=== PATIENT | male | born 1980 | race African-American/Black ===

== ENCOUNTER 2019-10-23 22:53 | Inpatient (IN) | payer MEDICAID ==
[~2019-10-23] VITALS: Ht 172.7 cm; Wt 103.9 kg
[2019-10-23] MEDS ORDERED: SODIUM CHLORIDE 0.9% 1,000 ML IV ONE (23:05)
[2019-10-23] MEDS ORDERED: DILTIAZEM HCL 5MG/ML 5ML VIAL IV ONE (23:15)
[2019-10-23 23:30] LABS: BASOPHILS % 0.4 % (0.0-2.0); EOSINOPHILS % 0.4 % (0.0-5.0); HEMATOCRIT. 44.7 % (42.0-52.0); HEMOGLOBIN. 14.5 g/dL (14.0-18.0); LYMPHOCYTES % 26.5 % (20.0-50.0); MEAN CORPUSCULAR VOLUME 77.2 fL (80.0-94.0); MONOCYTES % 7.6 % (2.0-8.0); NEUTROPHILS % 65.1 % (40.0-76.0); PLATELET 288 x1000/uL (130-400); RED BLOOD CELL COUNT 5.79 mill/uL (4.7-6.1); RED CELL DISTRIBUTION WIDTH 14.1 % (11.6-14.6)
[2019-10-23 23:35] LABS: CHLORIDE 107 mEq/L (98-107)
[2019-10-23 23:38] LABS: ETHANOL BLOOD < 10 mg/dL
[2019-10-24] MEDS ORDERED: DILTIAZEM HCL 125 MG in DEXT 5% WATER 100 ML IV SCH (01:00)
[2019-10-24 01:39] LABS: CLARITY URINE CLEAR (CLEAR); COLOR URINE YELLOW (YELLOW); KETONES URINE NEGATIVE (NEGATIVE); LEUKOCYTE ESTERASE URINE TRACE (NEGATIVE); NITRITE URINE NEGATIVE (NEGATIVE); OCCULT BLOOD URINE NEGATIVE (NEGATIVE); PROTEIN URINE NEGATIVE (NEGATIVE); SPECIFIC GRAVITY URINE 1.014 (1.005-1.030); UROBILINOGEN URINE 0.2 E.U./dL (0.2-1.0)
[2019-10-24 01:49] LABS: *AMPHETAMINES SCREEN URINE NEGATIVE (NEGATIVE); *BARBITURATES SCREEN URINE NEGATIVE (NEGATIVE)
[2019-10-24 01:50] LABS: *BENZODIAZEPINES SCREEN URINE NEGATIVE (NEGATIVE); *COCAINE SCREEN URINE NEGATIVE (NEGATIVE); CANNABINOID URINE SCREEN PRESUMTIVE POSITIVE (NEGATIVE); METHADONE URINE SCREEN NEGATIVE (NEGATIVE); OPIATES URINE SCREEN NEGATIVE (NEGATIVE); PHENCYCLIDINE URINE SCREEN NEGATIVE (NEGATIVE)
[2019-10-24] MEDS ORDERED: PIPERACILLIN/TAZ 3.375G PREMIX 50 ML IV SCH (02:00)
[2019-10-24] MEDS ORDERED: SODIUM CHLORIDE 0.9% 1000ML BAG (SEPSIS BOLUS) IV ONE (02:00)
[2019-10-24] MEDS: SODIUM CHLORIDE 0.45% 1,000 ML IV SCH (08:41)
[2019-10-24] MEDS ORDERED: CLONIDINE 0.1MG TABLET PO PRN (08:45)
[2019-10-24] MEDS ORDERED: ACETAMINOPHEN 650MG SUPP PR PRN (08:45)
[2019-10-24] MEDS ORDERED: GUAIFENESIN 200MG/10ML SUGAR FREE UDC PO PRN (08:45)
[2019-10-24] MEDS ORDERED: DOCUSATE SODIUM 100MG CAPSULE PO PRN (08:45)
[2019-10-24] MEDS ORDERED: ACETAMINOPHEN 325MG TABLET PO PRN ×2 (08:45)
[2019-10-24] MEDS ORDERED: DIPHENHYDRAMINE 50MG/ML VIAL IV PRN (08:45)
[2019-10-24] MEDS ORDERED: ACETAMINOPHEN 650MG/20.3ML UDC GT PRN ×2 (08:45)
[2019-10-24] MEDS ORDERED: MAGNESIUM/ALUMINUM HYDROXIDE/SIMETHICONE 30ML UDC PO PRN (08:45)
[2019-10-24] MEDS ORDERED: NA PHOS,M-B/NA PHOS,DI-BA ENEMA 118ML PR PRN (09:00)
[2019-10-24] MEDS: ENOXAPARIN 40MG/0.4ML SYR SUBCUT SCH (09:00)
[2019-10-24] MEDS: METOPROLOL TARTRATE 25MG TABLET PO SCH ×2 (09:00→20:41)
[2019-10-24 17:05] VITALS: BP 125/79
[2019-10-24 17:30] VITALS: BP 125/79
[2019-10-24 20:00] VITALS: BP 128/70
[2019-10-24 20:25] LABS: BASOPHILS % 0.2 % (0.0-2.0); EOSINOPHILS % 0.3 % (0.0-5.0); HEMATOCRIT. 44.3 % (42.0-52.0); HEMOGLOBIN. 14.1 g/dL (14.0-18.0); LYMPHOCYTES % 17.8 % (20.0-50.0); MEAN CORPUSCULAR HEMOGLOBIN 24.6 pg (28.0-32.0); MEAN CORPUSCULAR VOLUME 77.1 fL (80.0-94.0); MEAN PLATELET VOLUME 8.2 fl (7.4-10.4); MONOCYTES % 10.6 % (2.0-8.0); NEUTROPHILS % 71.1 % (40.0-76.0); PLATELET 261 x1000/uL (130-400); RED BLOOD CELL COUNT 5.75 mill/uL (4.7-6.1); RED CELL DISTRIBUTION WIDTH 14.8 % (11.6-14.6)
[2019-10-24 20:33] LABS: CHLORIDE 111 mEq/L (98-107)
[2019-10-24 20:42] LABS: CREATINE KINASE 158 IU/L (39-308)
[2019-10-24 20:44] LABS: CREATINE KINASE MB FRACTION < 1.0 ng/mL (0.5-3.6)
[2019-10-25] VITALS: BP 127/88
[2019-10-25] MEDS: SODIUM CHLORIDE 0.45% 1,000 ML IV SCH (01:16)
[2019-10-25 06:05] VITALS: BP 131/88
[2019-10-25 07:09] LABS: CHLORIDE 107 mEq/L (98-107)
[2019-10-25 07:16] LABS: LDL CHOLESTEROL 106 mg/dL (5-100)
[2019-10-25 07:17] LABS: CREATINE KINASE 139 IU/L (39-308); HDL CHOLESTEROL 37 mg/dL (40-59)
[2019-10-25 07:21] LABS: CREATINE KINASE MB FRACTION < 1.0 ng/mL (0.5-3.6)
[2019-10-25 07:37] LABS: BASOPHILS % 0.3 % (0.0-2.0); EOSINOPHILS % 0.7 % (0.0-5.0); HEMOGLOBIN. 14.4 g/dL (14.0-18.0); MEAN CORPUSCULAR HEMOGLOBIN 24.8 pg (28.0-32.0); MEAN CORPUSCULAR VOLUME 77.4 fL (80.0-94.0); MEAN PLATELET VOLUME 8.2 fl (7.4-10.4); MONOCYTES % 6.8 % (2.0-8.0); NEUTROPHILS % 70.2 % (40.0-76.0); PLATELET 290 x1000/uL (130-400); RED BLOOD CELL COUNT 5.81 mill/uL (4.7-6.1); RED CELL DISTRIBUTION WIDTH 14.7 % (11.6-14.6)
[2019-10-25 08:00] VITALS: BP 139/76
[2019-10-25] MEDS: ENOXAPARIN 40MG/0.4ML SYR SUBCUT SCH (10:02)
[2019-10-25] MEDS: METOPROLOL TARTRATE 25MG TABLET PO SCH (10:06)
[2019-10-25 12:00] VITALS: BP 128/87
[2019-10-25 14:35] VITALS: BP 128/87
== END 2019-10-25 15:30 | disposition home or self-care (01) | DRG 201 ==
LOC: ER 22:53 → EDBEDREQSVC 23:14 → EDBEDREQ 23:14 → EDBEDREQTM 10-24 00:50 → EDBEDREQDT 10-24 00:50 → EDBEDREQ 10-24 00:50 → 5WST 10-24 04:50 → EDBEDREQTM 10-24 04:50 → EDBEDREQSVC 10-24 04:50 → ENRESERV 10-24 16:28
PROVIDERS: ADMIT Family Medicine; ATTEND Family Medicine
DX: I48.91 Unspecified atrial fibrillation (principal); E66.9 Obesity, unspecified; E86.0 Dehydration; E87.2 Acidosis; F12.90 Cannabis use, unspecified, uncomplicated; R73.9 Hyperglycemia, unspecified; R55 Syncope and collapse; R00.0 Tachycardia, unspecified; Z68.34 Body mass index [BMI] 34.0-34.9, adult
CPT/HCPCS: 36415; 71045; 80053; 80061; 80305; 80320; 81003; 82550; 82553; 83605; 84145; 84443; 84484; 85025; 93005; 93306; 99291; J1650; J2543; J3490; J7030; J7060; G0480